=== PATIENT | female | born 1935 | race Caucasian/White ===

== ENCOUNTER 2017-07-26 06:43 | Inpatient (IN) | payer OTHER ==
[~2017-07-26] VITALS: Ht 154.9 cm; Wt 73.5 kg
[~2017-07-26 06:43] MED LIST: CEFUROXIME500 MG PO; FELODIPINE 5 MG5 M1 PO; HYDROCODON-ACE1 EACH PO; MOBIC15 MG PO; PERCOCET 5-3251 EACH PO; RAPAFLO4 MG PO; SIMVASTATIN40 MG PO; SYNTHROID50 MCG PO
[2017-07-26 06:46] VITALS: BP 132/70
[2017-07-26 07:29] LABS: ABSOLUTE BASOPHILS 0.1 thou/uL (0.0-0.2); ABSOLUTE EOSINOPHILS 0.2 thou/uL (0.0-0.7); ABSOLUTE LYMPHOCYTES 1.5 thou/uL (0.8-5.3); ABSOLUTE MONOCYTES 0.5 thou/uL (0.0-1.2); ABSOLUTE NEUTROPHILS 5.9 thou/uL (1.6-8.1); BASOPHILS 0.6 %; EOSINOPHILS 1.8 %; HEMATOCRIT 40.8 % (37.0-47.0); HEMOGLOBIN 13.4 gm/dL (12.0-15.0); LYMPHOCYTES 18.7 %; MCH 28.8 pg (26.0-34.0); MCHC 32.8 g/dL (28.0-37.0); MCV 87.9 fL (80.0-100.0); MONOCYTES 6.4 %; MPV 7.8 fl. (7.2-11.1); NUCLEATED RBCS 0 /100WBC; PLATELET COUNT* 276 thou/uL (150-400); POLYS 72.5 %; RBC 4.64 mil/uL (4.20-5.00); RDW-CV 14.6 % (10.5-14.5); WBC 8.2 thou/uL (4.0-11.0)
[2017-07-26 07:39] LABS: CALCIUM 8.4 mg/dL (8.5-10.1); CREATININE 0.7 mg/dL (0.6-1.3); POTASSIUM 3.6 mmol/L (3.5-5.1)
[2017-07-26 07:43] LABS: ALBUMIN 3.9 g/dL (3.4-5.0); TOTAL BILIRUBIN 0.3 mg/dL (<0.1-1.0)
[2017-07-26 09:13] VITALS: BP 110/54
--- NOTE | 2017-07-26 10:15 | NUR ---
PT ADMITTED TO TELEMETRY FLOOR UNDER THE CARE OF DR KENNY. PT ORIENTED TO UNIT AND SERVICES. FOOD AND DRINK OFFERED. CARDOAC MONITOR APPLIED AND STRIP PRINTED. PT VERBALIZED UNDERSTANDING ADMISION TEACHING. PT VSS TRACING SA ON THE MONITOR. PT CURRENTLY RESTING IN BED WATCHING TV. NUERSING WILL CONTINUE TO MONITOR.
[2017-07-26 10:19] LABS: URINE BILIRUBIN NEGATIVE (Negative); URINE BLOOD TRACE (Negative); URINE CLARITY CLEAR; URINE COLOR YELLOW; URINE GLUCOSE-RANDOM NEGATIVE (Negative); URINE KETONES NEGATIVE (Negative); URINE LEUKOCYTES-REFLEX TRACE (Negative); URINE NITRITE-REFLEX NEGATIVE (Negative); URINE PROTEIN NEGATIVE (Negative); URINE SPECIFIC GRAVITY 1.015 (1.005-1.030); URINE UROBILINOGEN 0.2 E.U./dl (0.2-1.0)
[2017-07-26 11:37] VITALS: BP 105/43
--- NOTE | 2017-07-26 14:39 | NUR ---
PT LEFT THE FLOOR AT APPROXIMATELY 1420 TO GO DOWN FOR FEW PROCEEDURES SUCH A US CAROTIDS AND THEN A CONTRASTED CT OF PELVIS AND ABD.
--- NOTE | 2017-07-26 15:09 | NUR ---
PT RETURNED TO THE FLOOR AT 1505. NO C/O PAIN, DISTRESS, OR BEING DIZZY. NURSING WILL CONTINUE TO MONITOR.
--- NOTE | 2017-07-26 16:10 | EKG ---
[place] [address] ELECTROCARDIOGRAM REPORT Name: ADONIS OBREGON Room: [address] ADM IN M.R.#: [id number] Admission: 07/26/17 Attend Phys: En Bowman MD Discharge: Date of : 31 Report #: [id number] THIS REPORT FOR: //name// [facility] ED Test Date: 2017-07-26 Test Time: 07:01:33 Pat Name: ADONIS OBREGON Department: Room: [facility] Gender: F Steward/Stewardess Second: Arpit [place] : 1935 Requested By: Johanne Camilo Order Number: [id number] MD: Herbert Rider Measurements Intervals [place] Rate: 64 P: 21 [place]: 197 QRS: -42 QRSD: 93 T: 10 QT: 457 QTc: 472 Interpretive Statements Sinus rhythm Left axis deviation Low voltage, extremity leads Abnormal R-wave progression, late transition Compared to ECG 04/14/2013 03:12:55 Low QRS voltage now present Electronically Signed On 07-26-2017 16:09:56 CDT by Herbert Rider [email or web address] <ELECTRONICALLY SIGNED> By: Herbert Rider MD, [facility] 07/26/17 1609 0701 0701 Herbert Rider MD, [facility] /EPI
--- NOTE | 2017-07-26 16:53 | 2DMMODE ---
[place] [address] 2 D/M-MODE ECHOCARDIOGRAM Name: ADONIS OBREGON Room: [address] IN [facility]#: [id number] Admission: 07/26/17 Attend Phys: En Bowman, Discharge: Date of : 31 Date of Service: 07/26/17 1652 Report #: [id number] THIS REPORT FOR: //name// APPROVED REPORT Study performed: 07/26/2017 15:56:09 EXAM: Comprehensive 2D, Doppler, and color-flow Echocardiogram Patient Location: In-Patient Room #: [facility] Status: routine BSA: 1.69 HR: 66 bpm BP: 105/43 mmHg Rhythm: NSR Other Information Study Quality: Good Indications Dizziness 2D Dimensions LVEF(%): 69.93 (>50%) IVSd: 9.44 (7-11mm) LVOT Diam: 19.78 (18-24mm) LVDd: 35.31 mm PWd: 9.12 (7-11mm) Ascending Ao: 36.05 (22-36mm) LVDs: 21.69 (25-40mm) Aortic Root: 34.49 mm Philippe's LVEF: 69.93 % Volumes Left Atrial Volume (Systole) LA ESV Index: 29.90 mL/m2 Aortic Valve AoV Peak Gerhard.: 1.36 m/s AO Peak Gr.: 7.36 mmHg LVOT Max P.42 mmHg AO Mean Gr.: 4.18 mmHg LVOT Mean P.36 mmHg LVOT Max V: 1.16 m/s AO V2 VTI: 32.12 cm LVOT Mean V: 0.70 m/s REBA (VTI): 2.61 cm2 LVOT V1 VTI: 27.26 cm Mitral Valve E/A Ratio: 1.07 [place] [address] 2 D/M-MODE ECHOCARDIOGRAM Name: ADONIS OBREGON Room: [address] IN M.R.#: [id number] Admission: 07/26/17 Attend Phys: En Bowman, Discharge: Date of : 31 Date of Service: 07/26/17 1652 Report #: [id number] MV Decel. Time: 232.06 ms MV E Max Gerhard.: 1.05 m/s MV PHT: 67.30 ms MVA (PHT): 3.27 cm2 TDI E/Lateral E': 11.67 E/Medial E': 15.00 Medial E' Gerhard.: 0.07 m/s Lateral E' Gerhard.: 0.09 m/s Pulmonary Valve PV Peak Gerhard.: 0.82 m/s PV Peak Gr.: 2.68 mmHg Tricuspid Valve TR Peak Gr.: 22.14 mmHg RVSP: 27.00 mmHg Left Ventricle The left ventricle is normal size. There is normal LV segmental wall motion. There is normal left ventricular wall thickness. Left ventricular systolic function is normal. The left ventricular ejection fraction is within the normal range. LVEF is 60%. Grade I - abnormal relaxation pattern. Right Ventricle The right ventricle is normal size. The right ventricular systolic function is normal. Atria Left atrium is borderline dilated. The right atrium size is normal. Aortic Valve Mild aortic valve sclerosis. No aortic regurgitation is present. There is no aortic valvular stenosis. Mitral Valve The mitral valve is normal in structure. Mild mitral regurgitation. No evidence of mitral valve stenosis. Tricuspid Valve The tricuspid valve is normal in structure. Trace tricuspid regurgitation. The RVSP is ___27____ mmHg. Pulmonic Valve The pulmonary valve is normal in structure. There is no pulmonic [place] [address] 2 D/M-MODE ECHOCARDIOGRAM Name: ADONIS OBREGON Room: [address] IN M.R.#: [id number] Admission: 07/26/17 Attend Phys: En Bowman, Discharge: Date of : 31 Date of Service: 07/26/17 1652 Report #: [id number] Great Vessels The aortic root is normal in size. IVC is normal in size and collapses with >50% inspiration Pericardium There is no pericardial effusion. <Conclusion> The left ventricle is normal size. There is normal left ventricular wall thickness. Left ventricular systolic function is normal. The left ventricular ejection fraction is within the normal range. LVEF is 60%. Grade I - abnormal relaxation pattern. The right ventricle is normal size. Left atrium is borderline dilated. Mild aortic valve sclerosis. No aortic regurgitation is present. There is no aortic valvular stenosis. The mitral valve is normal in structure. Mild mitral regurgitation. The tricuspid valve is normal in structure. Trace tricuspid regurgitation. The RVSP is ___27____ mmHg. IVC is normal in size and collapses with >50% inspiration There is no pericardial effusion. There is normal LV segmental wall motion. <ELECTRONICALLY SIGNED> By: Herbert Rider MD, FACC 07/26/171651 51 51 Herbert Rider MD, FACC /INF
--- NOTE | 2017-07-26 18:16 | NUR ---
PT CONTINUES TO BE A&O X4 CALMA ND COOPERATIVE. SHE DENIES ANY C/O PAIN OR DISTRESS BUT STILL REPORTS BEING DIZZY AT TIMES. SHE HAS BEEN ANXIOUS TODAY WHEN SHE GETS DIZZY. PRN LORAZEPAM UTILIZED EFFECTIVELY TO REDUCED ANXIETY AND BEING DIZZY. PT HAS HER SIGNIFICANT OTHER AT BEDSIDE AND IS WATCHING TV. NURSING WILL CONTINUE TO MONITOR.
[2017-07-26 20:00] VITALS: BP 93/44
[2017-07-27] VITALS (7 sets, daily range): BP systolic 90–116; BP diastolic 32–57
--- NOTE | 2017-07-27 04:01 | NUR ---
ASSUMED CARE AT 1999, ASSESSMENT CHARTED. PATIENT ALERT/ORIENTED X4, RESTING IN BED. STATES HAVING INTERMITTENT DIZZINESS. UP WITH STANDBY ASSIST. DENIES PAIN OR NEEDS. SCD'S INTACT. BED ALARM ON. CALL LIGHT WITHIN REACH, ENCOURAGED TO CALL FOR NEEDS.
[2017-07-27 05:23] LABS: ABSOLUTE BASOPHILS 0.1 thou/uL (0.0-0.2); ABSOLUTE EOSINOPHILS 0.2 thou/uL (0.0-0.7); ABSOLUTE LYMPHOCYTES 1.9 thou/uL (0.8-5.3); ABSOLUTE MONOCYTES 0.4 thou/uL (0.0-1.2); ABSOLUTE NEUTROPHILS 2.1 thou/uL (1.6-8.1); BASOPHILS 1.2 %; EOSINOPHILS 3.5 %; HEMATOCRIT 34.1 % (37.0-47.0); LYMPHOCYTES 41.5 %; MCH 29.5 pg (26.0-34.0); MCHC 33.5 g/dL (28.0-37.0); MCV 88.2 fL (80.0-100.0); MONOCYTES 9.1 %; MPV 7.6 fl. (7.2-11.1); NUCLEATED RBCS 0 /100WBC; PLATELET COUNT* 243 thou/uL (150-400); POLYS 44.7 %; RBC 3.86 mil/uL (4.20-5.00); RDW-CV 14.8 % (10.5-14.5); WBC 4.7 thou/uL (4.0-11.0)
[2017-07-27 05:26] LABS: HEMOGLOBIN 11.4 gm/dL (12.0-15.0)
[2017-07-27 05:37] LABS: CALCIUM 7.4 mg/dL (8.5-10.1); CREATININE 0.7 mg/dL (0.6-1.3); POTASSIUM 3.6 mmol/L (3.5-5.1)
--- NOTE | 2017-07-27 07:15 | NUR ---
ASSUMED CARE OF PT ASSESSED AND DOCUMENTED. PT IS ON CARDIAC MONITER TRACING SR HR 65. PT IS A&O WITH NO C/O PAIN. PT IS ON FALL PRECAUTIONS PER FACILITY PROTOCOL. VSS WNL. PT IS AFEBRILE. BED IS IN LOW POSITION CALL LIGHT IS IN REACH. WM.
--- NOTE | 2017-07-27 13:56 | NUR ---
CM ASSESSMENT: Pt is A&O. Resides at home alone. Supportive BF and family that is involved in POC. Independent with ADLs, continues to drive. No DME. No hx of HH or SNF. PT/OT evals pending. Goal is to return home once medically stable.
--- NOTE | 2017-07-27 16:50 | NUR ---
PT HAS RESTED IN HER ROOM THIS SHIFT. EDUCATION GIVEN ON DEMAND. HOURLY ROUNDING COMPLETE. PT HAS NO C/O PAIN OR OF BEING DIZZY.
[2017-07-28] VITALS: BP 111/48
--- NOTE | 2017-07-28 01:27 | NUR ---
PT ALERT ORIENTED. UP TO BATHROOM WITH STD BY ASSIST OF ONE. DENIES DIZZYNESS, CHEST PAIN OR DISCOMFORT. TELMETRY SHOWS SR. IVF DC'D. VSS. WILL CONTINUE TO MONITOR.
[2017-07-28 04:00] VITALS: BP 121/58
[2017-07-28 08:00] VITALS: BP 130/60
--- NOTE | 2017-07-28 10:47 | NUR ---
ASSUMED CARE IN AM. VSS. NSR. PATIENT NOT VOICING PAIN. PT GOAL OF LEAVING. PT UP WITH SUPERVISION. PT ATE ADEQUATE AMOUNTS OF BREAKFAST. FAMILY IN FOR VISIT IN AM. IV SALINE LOCKED. NEEDS ASSESSED FOR AND PT LEFT WITH CALL LIGHT IN REACH.
[2017-07-28 11:50] VITALS: BP 115/60
[2017-07-28] MEDS ORDERED: ASPIR 8181 MG PO (12:05)
[2017-07-28] MEDS ORDERED: NORVASC5 MG PO (13:20)
[2017-07-28 13:22] VITALS: BP 115/60
--- NOTE | 2017-07-28 15:05 | NUR ---
VSS, ASSUMED CARE IN THE AM, ASSESSMENT PERFORMED AND CHARTED, FALL PRECAUTIONS IN PLACE AND CALL LIGHT IN REACH, PT IS A&O4 AND UP WITH ONE AND ON RA TRACING SR ON THE MONITOR, PT DENIES ANY PAIN, AT THIS TIME PT HAS RECIVED D/C ORDERS, FILLED OUT PT MEDICATIONS SHEET AND D/C INSTRUCTIONS PROVITED, PT IV AND TELE MONITOR TAKEN OFF AND PT BELONGINGS GAHTERED, PT DENIES ANY QUESTIONS OR CONCERNS AT TIME OF D/C PT WALKED OUT TO CAR WITH ME.
--- NOTE | 2017-08-02 20:02 | CON ---
[address] [address] CONSULTATION Name: ADONIS OBREGON Room: [address] IN M.R.#: [id number] Admission: 07/26/17 Attend Phys: En Bowman MD Discharge: 07/28/17 Date of : 31 Report #: [id number] THIS REPORT FOR: //name// CC: En MURCIA DATE OF SERVICE: 07/27/2017 HISTORY OF PRESENT ILLNESS: This is an 81-year-old female patient who was evaluated by me for dizziness. This patient indicated that the dizziness started suddenly. She moved her neck towards the right and that led to dizziness, which continued. It has fluctuated to some extent and then this morning she feels better. She had significant difficulty with ambulation because of ataxia yesterday, but that has also improved. She had similar symptoms in 2016 and those records were reviewed. She also had intractable severe dizziness that time, but that has become better and in between the time she did not have any further dizziness. REVIEW OF SYSTEMS: Indicate that she is not having any ENT symptoms like tinnitus associated with present symptomatology. I carried out 14-point review of systems partly from her and partly from the records. In 2016, she had workup including MRI and MRA that were unremarkable. However, she had a carotid Doppler this time, which is abnormal. That needs to be further confirmed and if that has become abnormal within this last two years that will be a significant finding. She does indicate that she has hypertension, but she also indicates that intermittently she develops hypotension and that is confirmed by the present records because her blood pressure has gone as low as 90 systolic when she is here. She is not certain if she ever had any stroke, but does not know anybody has told her that. She was having pretty insignificant nausea, but according to her that has also improved this morning. Except as summarized above, she does not have any new eye, cardiac, respiratory, , musculoskeletal, constitutional, dermatological, hematological, psychiatric, throat or allergic symptom associated with present symptomatology. She does have some joint pains, which is nonspecific and chronic. PAST MEDICAL HISTORY: Positive for similar episode of dizziness and there was some question that she had UTI at that time. FAMILY HISTORY: Negative for early age stroke. SOCIAL HISTORY: She does not smoke or drink any alcohol. PHYSICAL EXAMINATION: Indicates she is alert, responsive, oriented. Her speech, concentration, fund of knowledge and memory is at her baseline. Cranial nerve examination 2-12 is unremarkable. She has symmetrical strength, sensation, reflexes and tones in all 4 extremities[place] [address] CONSULTATION Name: ADONIS OBREGON Room: [address] IN M.R.#: [id number] Admission: 07/26/17 Attend Phys: En Bowman MD Discharge: 07/28/17 Date of : 33 Report #: [id number] sign. There is no papilledema. There is no carotid bruit. She is moderately built individual who does not have any dysmorphic features of eyes, ears and face. Her vision and hearing looks adequate. Her pulses are palpable. She has no edema, cyanosis or jaundice. Vital signs indicate the last blood pressure was 116/57, respiration was 14, pulse is 66, temperature is 98.1. LABORATORY DATA: Indicate a normal white count at 4.7 and normal sodium is 144, but calcium is decreased at 7.4. She did have a carotid Doppler, which was reviewed. I can review only the results and the report here and they are reporting some stenosis in the right carotid, which will be new since 2016, but that has to be confirmed by some other imaging modalities. IMPRESSION: Dizziness. This appeared to be of ENT pathology. The only way the carotid stenosis can explain the symptoms is if she has a dissection, even then it will be difficult to explain. However, I think we need to pursue further. She does become worse when she moves her neck. We will go ahead and repeat the MRI in this patient and look out to see if that carotid stenosis is real or not. She does become hypotensive and that may be contributing or causing the symptoms that need to be addressed. RECOMMENDATIONS: 1. I will go ahead and do an MRA and MRI in this patient. 2. She is scheduled to have an echocardiogram. 3. We will suggest monitoring the blood pressure and correcting it as necessary. 4. Further workup will defend what the outcome of the above testing is, especially if C-spine shows any pathology or whether there is any suspicion for dissection. Dr. Coello will take over the service and follow this patient with you from tomorrow and leave further suggestion once the above workup is available. Thank you very much for this referral and if you have any question, please feel free to contact me. <ELECTRONICALLY SIGNED> By: Simone Hdz MD 08/02/172001 0946 1124Pvictor m Hdz MD /nt
--- NOTE | 2017-08-13 10:19 | CON ---
[address] [address] CONSULTATION Name: ADONIS OBREGON Room: [address] IN M.R.#: [id number] Admission: 07/26/17 Attend Phys: En Bowman MD Discharge: 07/28/17 Date of : 31 Report #: [id number] THIS REPORT FOR: //name// CC: En MURCIA DATE OF SERVICE: 07/27/2017 This is MAGY Dickinson, dictating in collaboration with Dr. Dax Patel. REASON FOR CONSULTATION: Carotid artery stenosis. HISTORY OF PRESENT ILLNESS: The patient is a very pleasant 81-year-old female who presented to the Emergency Department with complaints of dizziness. She states that she felt like her head was spinning, denies any room spinning. She denies any vision changes, speech difficulties, unilateral weakness or numbness. She did have some difficulty ambulating due to the dizziness, but was able to make it to the phone and call for help. She reports a similar episode back in 2016. She reports her symptoms have completely resolved at this point. She denies any CVA or TIA type symptoms overnight. She denies any current nausea, vomiting, fevers, chills, chest pain or shortness of breath. A CT of the head was obtained upon admission, which was negative for an acute infarct. A carotid duplex was obtained, which demonstrates approximately 60% stenosis in the right internal carotid artery. We have been asked to evaluate the patient and give our opinion regarding these findings. PAST MEDICAL HISTORY: 1. Hypertension. 2. Arthritis. 3. Osteoporosis. 4. Kidney stones. 5. Hernia. 6. Cervical cancer. 7. Diverticulitis. 8. Frequent sinus infections. 9. Hyperlipidemia. PAST SURGICAL HISTORY: 1. Hernia repair. 2. Cholecystectomy. 3. Appendectomy. SOCIAL HISTORY: She is a nonsmoker. Denies any alcohol or illicit drug use. [place] [address] CONSULTATION Name: ADONIS OBREGON Room: [address]#: [id number] Admission: 07/26/17 Attend Phys: En Bowman MD Discharge: 07/28/17 Date of : 33 Report #: [id number] ALLERGIES: SULFA. HOME MEDICATIONS: 1. Plendil ER 10 mg daily. 2. Zocor 40 mg at bedtime. 3. Synthroid 50 mcg daily. FAMILY HISTORY: Reviewed, noncontributory due to her advanced age. REVIEW OF SYSTEMS: A 12-point review of systems has been reviewed and is negative except for the above-mentioned in the history of present illness. PHYSICAL EXAMINATION: VITAL SIGNS: Temperature 37.0, heart rate 65, respiratory rate 17, blood pressure 97/54. GENERAL: She is alert, oriented, in no acute distress. HEENT: Head is normocephalic atraumatic. NECK: Supple without jugular venous distention or carotid bruit. HEART: Regular rate and rhythm. No murmurs, clicks, or extra heart tones. CHEST: Lungs clear to auscultation bilaterally. ABDOMEN: Soft, nontender, positive bowel sounds. EXTREMITIES: Palpable bilateral radial and pedal pulses. NEUROLOGIC: Alert and oriented with no focal neurologic deficits. LABORATORY DATA: Hemoglobin 11.4, hematocrit 34.1, white blood cell count 4.7, platelets 243. Sodium 144, potassium 3.6, chloride 108, CO2 27, BUN 11, creatinine 0.7, glucose 91. ASSESSMENT AND PLAN: 1. Carotid artery stenosis. Dr. Patel has reviewed her carotid duplex. She has 55-60% stenosis in the right internal carotid artery. No surgical intervention is currently indicated. We will schedule her for an outpatient carotid duplex in 6 months. Recommend 81 mg daily aspirin therapy if okay with others. 2. Dizziness, which has now resolved. 3. Hypertension. 4. Hyperlipidemia. We thank you for the opportunity to participate in the care of the patient. Please feel free to contact our office with any questions or concerns. <ELECTRONICALLY SIGNED> By: Zach Velasco DO 08/13/17 1019 1621 [id number] Klein /nt
== END 2017-07-28 14:30 | disposition home or self-care (01) | DRG 68 ==
LOC: M.ERS 06:43 → M.2W 08:00 → M.TBA-ER 08:00 → M.2W 09:05
PROVIDERS: Emergency Medicine; ADMIT Internal Medicine
PROC: B24BZZ4 Ultrasonography of Heart with Aorta, Transesophageal (ICD-10-PCS; principal; 2017-07-26)
DX: I65.21 Occlusion and stenosis of right carotid artery (principal); I10 Essential (primary) hypertension; M19.90 Unspecified osteoarthritis, unspecified site; M81.0 Age-related osteoporosis without current pathological fracture; E86.0 Dehydration; Z87.442 Personal history of urinary calculi; Z85.41 Personal history of malignant neoplasm of cervix uteri; Z92.3 Personal history of irradiation; Z90.49 Acquired absence of other specified parts of digestive tract; Z79.899 Other long term (current) drug therapy; Z88.2 Allergy status to sulfonamides; Z82.49 Family history of ischemic heart disease and other diseases of the circulatory system

== ENCOUNTER 2018-01-25 17:20 | Inpatient (IN) | payer OTHER ==
[~2018-01-25] VITALS: Ht 154.9 cm; Wt 70.3 kg
[~2018-01-25 17:20] MED LIST changes: +ASPIR 8181 MG PO; +NORVASC5 MG PO
[2018-01-25 17:30] VITALS: BP 118/49
[2018-01-25 18:18] LABS: ABSOLUTE BASOPHILS 0.1 thou/uL (0.0-0.2); ABSOLUTE EOSINOPHILS 0.2 thou/uL (0.0-0.7); ABSOLUTE MONOCYTES 0.6 thou/uL (0.0-1.2); ABSOLUTE NEUTROPHILS 2.6 thou/uL (1.6-8.1); BASOPHILS 2.3 %; EOSINOPHILS 3.6 %; HEMOGLOBIN 12.7 gm/dL (12.0-15.0); LYMPHOCYTES 36.1 %; MCH 29.2 pg (26.0-34.0); MCHC 33.4 g/dL (28.0-37.0); MCV 87.6 fL (80.0-100.0); MONOCYTES 11.1 %; MPV 7.8 fl. (7.2-11.1); NUCLEATED RBCS 0 /100WBC; PLATELET COUNT* 271 thou/uL (150-400); POLYS 46.9 %; RBC 4.33 mil/uL (4.20-5.00); RDW-CV 14.4 % (10.5-14.5); WBC 5.6 thou/uL (4.0-11.0)
[2018-01-25 18:27] LABS: CALCIUM 8.5 mg/dL (8.5-10.1); CREATININE 0.8 mg/dL (0.6-1.3)
[2018-01-25 18:28] LABS: APTT 26.4 Seconds (25.0-31.3)
[2018-01-25 18:36] LABS: ALBUMIN 3.6 g/dL (3.4-5.0); TOTAL BILIRUBIN 0.3 mg/dL (<0.1-1.0); TOTAL PROTEIN 6.6 g/dL (6.4-8.2)
[2018-01-25 18:40] LABS: POTASSIUM 2.9 mmol/L (3.5-5.1)
[2018-01-25 20:59] LABS: URINE BILIRUBIN NEGATIVE (Negative); URINE BLOOD NEGATIVE (Negative); URINE CLARITY CLEAR; URINE COLOR YELLOW; URINE GLUCOSE-RANDOM NEGATIVE (Negative); URINE KETONES NEGATIVE (Negative); URINE LEUKOCYTES-REFLEX TRACE (Negative); URINE NITRITE-REFLEX NEGATIVE (Negative); URINE PROTEIN NEGATIVE (Negative); URINE UROBILINOGEN 0.2 E.U./dl (0.2-1.0)
[2018-01-25 21:17] LABS: BACTERIA-REFLEX >30 Many /HPF (None Seen); CASTS None Seen /LPF (None Seen); CRYSTALS None Seen /LPF (None Seen); MUCUS 4-6 Moderate strn/LPF (None Seen); SQUAMOUS 0-3 Few /LPF (0-3); TRANSITIONAL EPITHEL CELL 0-3 Few /LPF (None Seen); URINE RBC 0-2 Rare /HPF (0-2); URINE WBC-REFLEX >25 Many /HPF (0-5); WBC CLUMPS Moderate (None Seen)
[2018-01-25 22:08] VITALS: BP 120/81
[2018-01-25 22:30] VITALS: BP 137/71
--- NOTE | 2018-01-26 00:40 | NUR ---
RECEIVED REPORT FROM INTERPRETER TRANSLATORDAAN CLARK AT 2205. PT ARRIVED VIA CART TO ROOM 228 AT 2230. PT VOICED NO CONCERNS. VERBALIZED H/A. IVF INFUSING. CARIDAC MONITOR IN PLACE, TRACING SINUS RHYTHM. NURSING ASSESSMENT COMPLETED. PRN PAIN MEDICATION ADMINISTERED AND EFFECTIVE. SEE EMAR FOR DOCUMENTATION. CALL LIGHT WITHIN REACH. PT UNSURE REGARDING HOME MEDICATIONS. PT STATED WILL HAVE DAUGHTER BRING LIST IN THE MORNING.
--- NOTE | 2018-01-26 03:41 | NUR ---
PT RESTING QUIETLY IN ROOM. NPO AFTER MIDNIGHT. VOICED NO CONCERNS THIS SHIFT. HOURLY ROUNDING COMPLETED. TRACING SINUS RHYTHM THIS SHIFT. CALL LIGHT WITHIN REACH.
[2018-01-26 04:00] VITALS: BP 114/60
[2018-01-26 08:00] VITALS: BP 142/70
[2018-01-26 12:31] VITALS: BP 144/70
--- NOTE | 2018-01-26 14:38 | NUR ---
MET WITH PT TO DISCUSS HOME SITUATION/DC PLANNING. PT LIVES ALONE, IS INDEPENDENT AND ACTIVE. DRIVES SHORT DISTANCES. DTR LIVES CLOSEBY AND ASSISTS WITH TRANSPORTATION. PT HASN'T HAD HH. DENIES DC NEEDS AT THIS TIME. WILL FOLLOW
[2018-01-26 16:32] VITALS: BP 117/56
--- NOTE | 2018-01-26 18:03 | EKG ---
[place] [address] ELECTROCARDIOGRAM REPORT Name: ADONIS OBREGON Room: [address] ADM IN M.R.#: [id number] Admission: 01/25/18 Attend Phys: Chrystal Lundberg MD Discharge: Date of : 31 Report #: [id number] THIS REPORT FOR: //name// [facility] ED Test Date: 2018-01-25 Test Time: 18:13:33 Pat Name: ADONIS OBREGON Department: Room: [facility] Gender: F Importer Or Exporter: KIRK : 1935 Requested By: Rosa Maria Heredia Order Number: [id number] MD: Silvano Damico Measurements Intervals [place] Rate: 66 P: 18 [place]: 207 QRS: -41 QRSD: 90 T: 42 QT: 437 QTc: 458 Interpretive Statements Sinus rhythm Left axis deviation Borderline low voltage, extremity leads Abnormal R-wave progression, late transition Baseline wander in lead(s) V1 Compared to ECG 07/26/2017 07:01:33 No significant changes Electronically Signed On 01-26-2018 18:03:21 CDT by Silvano Damico [email or web address] <ELECTRONICALLY SIGNED> By: Silvano Damico MD, FAC 01/26/181802 12 12 Silvano Damico MD, FAC /EPI
[2018-01-26 20:00] VITALS: BP 118/63
[2018-01-27] VITALS: BP 118/58
[2018-01-27 04:00] VITALS: BP 120/60
--- NOTE | 2018-01-27 04:33 | NUR ---
ASSUMED PT CARE AT 1930. ASSESSMENT COMPLETED CHARTED. ABLE TO MAKE NEEDS KNOWN, PT UP AD MARILUZ, IV FLUIDS RUNNING PER P.O. C/O ARTHRITIS IN HER LEGS, GAVE TYLENOL PRN, AND HAS STATED IT WORKED. PT RESTING IN BED MOST OF THE NIGHT. WILL CONTINUE TO MONITOR.
[2018-01-27 07:44] VITALS: BP 128/71
[2018-01-27 12:12] VITALS: BP 124/64
[2018-01-27] MEDS ORDERED: AUGMENTIN 500-1 EACH PO (13:07)
[2018-01-27 13:10] VITALS: BP 124/64
--- NOTE | 2018-01-27 13:25 | NUR ---
ASSESSMENT COMPLETED REFER TO COMPUTER CHARTING. RESOURCE CONSERVATIONIST TRACKING SR. PATIENT REPORTING NO PAIN, NAUSEA OR SHORTNESS OF BREATH. BED IN LOW AND LOCKED POSITION. CALL LIGHT WITHIN REACH. IV FLUIDS INFUSING. ON ROOM AIR. DISCHARGE ORDERS RECIEVED. DISCHARGE INSTRUCTIONS GIVEN TO PATIENT. IV AND RESOURCE CONSERVATIONIST DISCONTINUED. ALL PERSONAL BELONGINGS SENT WITH PATIENT. PATIENT TAKEN TO FRONT DOORS VIA WHEEL CHAIR.
--- NOTE | 2018-01-29 12:29 | CON ---
[address] [address] CONSULTATION Name: ADONIS OBREGON Room: [address] [place] .R.#: [id number] Admission: 01/25/18 Attend Phys: Chrystal Lundberg MD Discharge: 01/27/18 Date of : 31 Report #: [id number] THIS REPORT FOR: //name// CC: Chrystal GONZALEZ Physician staff DATE OF SERVICE: 01/26/2018 HISTORY OF PRESENT ILLNESS: The patient is an 82-year-old woman who was admitted from the Emergency Room on 01/25/2018. The patient is under the care of Dr. Robin Gonzalez in [place], [place] and she has been followed for possible carotid stenosis. She has had several spells in the past, which might have suggested TIAs. She was told to come to the Emergency Room here after she had memory issues when she got in her car, she forgot which pedal was gas and which was the brake and she also has been having headaches in the morning when she wakes up for the last month, which are frontal or occipital. The patient has hypertension for which she is on amlodipine and she is on a statin also. About a year ago, she had a spell in which she felt very dizzy, remembers throwing up and she had a brief episode of loss of consciousness. She was worked up at that time and no evidence of stroke or significant carotid stenosis was noted. About June, she had another episode not as bad as the previous one in which she had an episode of dizziness as well. 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 In retrospect, imaging from before 2 years ago showed the same mass without change. The MRI scan was done without contrast. Further workup on this occasion showed carotid Dopplers, which showed about 60% stenosis in each carotid. MRA of the cervical spine did not show any hemodynamic changes. An MRI of the brain showed no evidence of acute infarction. At the present time, the patient is asymptomatic with the exception of the baseline hearing, which is deafness in the left ear. The patient was found to have evidence of a urinary tract infection in the Emergency Room and has been started on antibiotics. PAST MEDICAL HISTORY: Positive for cervical cancer treated with surgery and radiation. She has also been diagnosed in the past with a colitis and does have diarrhea 2-3 times per week. She was told that she had a B12 deficiency in the past and had shots. Now, she is on pills. She is also taking Synthroid for hypothyroidism. SOCIAL HISTORY: She is a nonsmoker, nondrinker. She takes [place] [address] CONSULTATION Name: ADONIS OBREGON Room: [address] IN [facility].#: [id number] Admission: 01/25/18 Attend Phys: Chrystal Lundberg MD Discharge: 01/27/18 Date of : 31 Report #: [id number] REVIEW OF SYSTEMS: Positive for headache. She denies temporal artery tenderness or scalp tenderness, jaw claudication or any visual changes. She states that she looks after all of her needs. She pays her bills. She cooks and shops without help. She drives without problems. She does have problems going down stairs because of hip pain and knee pain from osteoarthritis. PHYSICAL EXAMINATION: VITAL SIGNS: Blood pressure 144/70, temperature 36.7, pulse 72. GENERAL: The patient is an elderly woman appearing her stated age. She is very pleasant and in no apparent distress. EXTREMITIES: No pedal edema is noted. NEUROLOGIC: She is alert and oriented with normal, memory and speech. She could do serial sevens easily. She remembered 2/3 words on the first trial, but on the second trial a few minutes, later remembered all 3 words. She could give a good medical narrative. CRANIAL NERVES: Pupils are equally round and reactive. Extraocular movements are full without nystagmus. Visual garcia were full to confrontation. Facial sensation and mobility is normal. She is completely deaf in her left ear. Tongue was normal. Motor testing revealed full power in the arms and legs. There was no pronator drift or involuntary movements. Sensation was intact to light touch and vibration. Coordination testing was done well with [id number]. Reflexes were diminished throughout, but equal. The toes were downgoing. Gait was not tested. IMPRESSION: The patient had a mild memory lapse associated with possible urinary tract infection. She has no evidence of Alzheimer dementia. 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 The differential diagnosis would be meningioma, but apparently, the lesion has not changed on serial MRIs, and she is not a surgical candidate. She does have a history of B12 deficiency and a B12 and MMA should be checked since it is evidently treatable. She does not meet criteria for carotid endarterectomy because the stenosis is not greater than 70%, and I do not believe that the symptoms that she presented with in anyway represent a transient ischemic attack. Thanks again for the kind consultation. <ELECTRONICALLY SIGNED> By: Derrek Talbert MD 01/29/18 1229 [id number] Talbert MD /damaris
--- NOTE | 2018-02-02 19:14 | EEG ---
[address] [address] EEG STUDY REPORT Name: MINDIADONIS J Room: [address] [place] .R#: [id number] Admission: 01/25/18 Attend Phys: Chrystal Lundberg MD Discharge: 01/27/18 Date of : 31 Report #: [id number] THIS REPORT FOR: //name// CC: Chrystal Lundberg [facility] Physician staff DATE OF SERVICE: 01/26/2018 This patient is being evaluated for confusion. The patient's EEG was done by placing the electrode by standard 10-20 system of electrode placement. Both referential and sequential montages were used for recording. Background activity in this patient's EEG is about 8 Hz and 30-40 microvolt. Photic stimulation was unremarkable. EEG is intermixed with some theta range slowing. No active epileptiform activity was noticed during this record. IMPRESSION: This patient's EEG is intermixed with some theta range slowing on both sides. No active epileptiform activity was noticed. Intermixed slowing is nonspecific and can occur with encephalopathy, effect of psychotropic medication, dementia, etc. Clinical correlation is recommended. <ELECTRONICALLY SIGNED> By: Simone Hdz MD 02/02/18 [id number] [id number] Hdz MD /nt
== END 2018-01-27 14:30 | disposition home or self-care (01) | DRG 689 ==
LOC: M.ERS 17:20 → M.TBA-ER 21:21 → M.2W 21:21
PROVIDERS: Personal Emergency Response Attendant; ADMIT Internal Medicine
DX: N39.0 Urinary tract infection, site not specified (principal); G92 Toxic encephalopathy; I65.23 Occlusion and stenosis of bilateral carotid arteries; I10 Essential (primary) hypertension; M19.90 Unspecified osteoarthritis, unspecified site; E03.9 Hypothyroidism, unspecified; M81.0 Age-related osteoporosis without current pathological fracture; E87.6 Hypokalemia; H91.92 Unspecified hearing loss, left ear; D33.3 Benign neoplasm of cranial nerves; R41.3 Other amnesia; Z90.49 Acquired absence of other specified parts of digestive tract; Z85.41 Personal history of malignant neoplasm of cervix uteri; Z92.3 Personal history of irradiation; Z79.82 Long term (current) use of aspirin; Z79.899 Other long term (current) drug therapy; Z88.2 Allergy status to sulfonamides; Z82.49 Family history of ischemic heart disease and other diseases of the circulatory system; Z90.710 Acquired absence of both cervix and uterus